=== PATIENT | female | born 1995 | race Caucasian/White ===

== ENCOUNTER → 2017-11-01 | Outpatient (CLI) | payer MEDICAID | END | disposition home or self-care (01) | LOC: US 16:47 | DX: Z34.92 Encounter for supervision of normal pregnancy, unspecified, second trimester (principal); Z3A.26 26 weeks gestation of pregnancy ==

== ENCOUNTER → 2017-11-06 | Outpatient (CLI) | payer MEDICAID | END | disposition home or self-care (01) | LOC: LAB 17:36 | DX: Z33.1 Pregnant state, incidental (principal) ==